=== PATIENT | male | born 1955 | race African-American/Black ===

== ENCOUNTER 2017-09-20 00:35 | Emergency (ER) | payer OTHER ==
[~2017-09-20] VITALS: Ht 175.3 cm; Wt 81.6 kg
[2017-09-20 01:18] LABS: Basophils # (auto) 0.1 uL; Basophils % (auto) 0.6 % (0.0-2.0); Eosinophils # (auto) 0.1 uL; Eosinophils % (auto) 0.7 % (0.0-7.0); Hematocrit 42.6 % (41.0-53.0); Hemoglobin 14.2 g/dL (13.5-17.5); Lymphocytes # (auto) 1.3 uL; Lymphocytes % (auto) 14.1 % (10.0-50.0); Mean Corpuscular Hemoglobin 28.6 pg (28.0-32.0); Mean Corpuscular Hgb Conc. 33.4 g/dL (32.0-36.0); Mean Corpuscular Volume 85.8 fL (80.0-100.0); Monocytes # (auto) 0.6 uL; Monocytes % (auto) 6.6 % (0.0-12.0); Neutrophils # (auto) 7.1 uL; Platelet Count (auto) 275 10^3/uL (140-450); Red Blood Cells 4.97 10^6/uL (4.5-5.90); Red Cell Distribution Width 15.3 % (11.8-14.3); White Blood Cell 9.1 10^3/uL (4.4-10.8)
[2017-09-20 01:39] LABS: INR 0.93 (0.9-1.15); Partial Thromboplastin Time 19.8 sec (23.78-33.04)
[2017-09-20 01:42] LABS: Alanine Aminotransferase 29 U/L (16-61); Albumin 3.8 g/dL (3.4-5.0); Anion Gap 8 (5-15); Aspartate Aminotransferase 23 U/L (15-37); BUN/Creatinine Ratio 17.9; Blood Urea Nitrogen 21 mg/dL (7-18); Calcium 8.5 mg/dL (8.5-10.1); Carbon Dioxide 25 mmol/L (21-32); Chloride 107 mmol/L (98-107); GFR African American 81 mL/min; GFR Non-African American 67 mL/min; Glucose 102 mg/dL (74-106); Potassium 3.9 mmol/L (3.5-5.1); Sodium 140 mmol/L (136-145)
[2017-09-20 01:47] LABS: Alkaline Phosphatase 74 U/L (45-117); Bilirubin, Total 0.2 mg/dL (0.2-1.0); Total Protein 7.8 g/dL (6.4-8.2)
[2017-09-20] MEDS ORDERED: LEVOFLOXACIN 750MG 150 ML IV ONE (05:15)
[2017-09-20 05:55] VITALS: BP 136/88
[2017-09-20] MEDS ORDERED: PROMETHAZINE HCL 25 MG/ML 1ML IV ONE (06:00)
[2017-09-20] MEDS ORDERED: AMLO5TAB2 PO (15:52)
[2017-09-20] MEDS ORDERED: ASPI81CH43 PO (15:52)
[2017-09-20] MEDS ORDERED: TRAZ50TA2 PO (15:52)
[2017-09-20] MEDS ORDERED: BUSP5TAB51 PO (15:52)
== END 2017-09-20 05:42 | disposition home or self-care (01) ==
LOC: ER 00:35 → EDBD 00:35 → EEVIPCON 00:35 → ER 05:42
DX: R07.89 Other chest pain (principal); J18.9 Pneumonia, unspecified organism; I10 Essential (primary) hypertension; Z88.6 Allergy status to analgesic agent; Z91.040 Latex allergy status
CPT/HCPCS: 36415; 71045; 80053; 83690; 83880; 84484; 85025; 85610; 85730; 93005; 94761; 96365; 96375; 99285; J1956; J2550

== ENCOUNTER 2017-09-20 08:59 | Inpatient (IN) | payer OTHER ==
[~2017-09-20] VITALS: Ht 175.3 cm; Wt 81.5 kg
[2017-09-20 09:53] LABS: Basophils # (auto) 0.1 uL; Basophils % (auto) 0.5 % (0.0-2.0); Eosinophils # (auto) 0 uL; Eosinophils % (auto) 0.1 % (0.0-7.0); Hematocrit 46.1 % (41.0-53.0); Hemoglobin 15.3 g/dL (13.5-17.5); Lymphocytes % (auto) 8.7 % (10.0-50.0); Mean Corpuscular Hemoglobin 28.5 pg (28.0-32.0); Mean Corpuscular Hgb Conc. 33.2 g/dL (32.0-36.0); Mean Corpuscular Volume 85.7 fL (80.0-100.0); Monocytes # (auto) 0.8 uL; Monocytes % (auto) 6.8 % (0.0-12.0); Neutrophils # (auto) 9.6 uL; Neutrophils % (auto) 83.9 % (37.0-80.0); Nucleated Red Blood Cells % 0.1 %; Platelet Count (auto) 282 10^3/uL (140-450); Red Blood Cells 5.38 10^6/uL (4.5-5.90); Red Cell Distribution Width 15.1 % (11.8-14.3); White Blood Cell 11.5 10^3/uL (4.4-10.8)
[2017-09-20 10:14] LABS: Alanine Aminotransferase 31 U/L (16-61); Albumin 4.1 g/dL (3.4-5.0); Alkaline Phosphatase 70 U/L (45-117); Anion Gap 14 (5-15); Aspartate Aminotransferase 21 U/L (15-37); Bilirubin, Total 0.4 mg/dL (0.2-1.0); Blood Urea Nitrogen 14 mg/dL (7-18); Calcium 8.8 mg/dL (8.5-10.1); Carbon Dioxide 26 mmol/L (21-32); Chloride 98 mmol/L (98-107); GFR African American 97 mL/min; GFR Non-African American 80 mL/min; Glucose 92 mg/dL (74-106); Potassium 4.2 mmol/L (3.5-5.1); Sodium 138 mmol/L (136-145); Total Protein 8.7 g/dL (6.4-8.2)
[2017-09-20 10:45] LABS: Urine Bacteria NONE SEEN /hpf (None Seen); Urine Blood Negative /uL (Negative); Urine Specific Gravity 1.016 (1.001-1.035); Urine WBC 2 /hpf (0 - 3)
[2017-09-20] MEDS ORDERED: NITROGLYCERIN 0.4 MG SL TAB SL PRN (11:15)
[2017-09-20] MEDS ORDERED: MORPHINE SULFATE 4 MG/ML SYR/VIAL IV PRN (11:15)
[2017-09-20] MEDS ORDERED: HCTZ 25 MG TAB PO ONE (11:30)
[2017-09-20] MEDS ORDERED: AZITHROMYCIN 250 MG TAB PO ONE (11:30)
[2017-09-20] MEDS: cefTRIAXone 1GM/10ml IVPUSH 10 ML IV SCH (11:43)
[2017-09-20] MEDS ORDERED: ALBUTEROL SULF 2.5 MG/0.5ML(0.5%) NEB SOLN NEB ONE (12:00)
[2017-09-20] MEDS: traMADol HCL 50 MG TAB PO PRN ×2 (15:29→20:35)
[2017-09-20] MEDS: ONDANSETRON HCL 4 MG/2 ML VIAL IV PRN (15:29)
[2017-09-20] MEDS ORDERED: TRAZ50TA2 PO (15:52)
[2017-09-20] MEDS ORDERED: AMLO5TAB2 PO (15:52)
[2017-09-20] MEDS ORDERED: ASPI81CH43 PO (15:52)
[2017-09-20] MEDS ORDERED: BUSP5TAB51 PO (15:52)
[2017-09-20 17:24] VITALS: BP 136/86
[2017-09-20] MEDS: IPRATROPIUM BROM 0.5 MG/2.5ML INH SOL NEB SCH (19:29)
[2017-09-20] MEDS: BUDESONIDE (INHALATION) 0.5 MG/2 ML NEB NEB SCH ×2 (19:29→22:39)
[2017-09-20 22:00] VITALS: BP 140/89
[2017-09-20] MEDS ORDERED: AMITRIPTYLINE HCL 10 MG TAB PO SCH (22:00)
[2017-09-20] MEDS ORDERED: traZODone HCL 50 MG TAB PO SCH (22:00)
[2017-09-21] MEDS: IPRATROPIUM BROM 0.5 MG/2.5ML INH SOL NEB SCH ×2 (01:06→06:39)
[2017-09-21 05:15] VITALS: BP 119/83
[2017-09-21] MEDS: BUDESONIDE (INHALATION) 0.5 MG/2 ML NEB NEB SCH (06:39)
[2017-09-21 09:00] VITALS: BP 127/72
[2017-09-21] MEDS ORDERED: HCTZ 25 MG TAB PO SCH (10:00)
[2017-09-21] MEDS ORDERED: ASPirin 81 mg TAB PO SCH (10:00)
[2017-09-21] MEDS ORDERED: amLODIPine BESYLATE 5 MG TAB PO SCH (10:00)
[2017-09-21] MEDS ORDERED: AZITHROMYCIN 250 MG TAB PO SCH (10:00)
[2017-09-21 10:05] VITALS: BP 127/72
[2017-09-21] MEDS: cefTRIAXone 1GM/10ml IVPUSH 10 ML IV SCH (10:21)
[2017-09-21] MEDS: ONDANSETRON HCL 4 MG/2 ML VIAL IV PRN (10:22)
== END 2017-09-21 12:25 | DRG 190 ==
LOC: EDBD 08:59 → ER 08:59 → OVERFLOW 09:00 → TELE-E-ADS 16:09
PROVIDERS: ADMIT Internal Medicine; ATTEND Internal Medicine
DX: J44.0 Chronic obstructive pulmonary disease with (acute) lower respiratory infection (principal); J18.9 Pneumonia, unspecified organism; J80 Acute respiratory distress syndrome; I10 Essential (primary) hypertension
CPT/HCPCS: 36415; 71250; 74176; 80053; 81001; 84484; 85025; 93005; 94640; 96374; 96375; J0696; J2405